=== PATIENT | female | born 1935 | race Caucasian/White ===

== ENCOUNTER → 2024-02-18 09:59 | Outpatient (REF) | payer OTHER, SELFPAY | LOC: RST 09:59 | PROVIDERS: ATTENDING PHYSICIAN Nurse Practitioner Gerontology | DX: F02.80 Dementia in other diseases classified elsewhere, unspecified severity, without behavioral disturbance, psychotic disturbance, mood disturbance, and anxiety (principal) | CPT/HCPCS: 74230; 92611 ==

== ENCOUNTER → 2024-07-16 10:39 | Outpatient (REF) | payer OTHER, SELFPAY | LOC: PET 10:39 | PROVIDERS: ATTENDING PHYSICIAN Internal Medicine Hospice and Palliative Medicine | DX: C50.412 Malignant neoplasm of upper-outer quadrant of left female breast (principal) | CPT/HCPCS: 78815; A9552 ==

== ENCOUNTER → 2024-07-30 13:07 | Outpatient (REF) | payer OTHER, SELFPAY | LOC: HWRAD 13:07 | PROVIDERS: ATTENDING PHYSICIAN Nurse Practitioner Gerontology; FAMILY PHYSICIAN Student in an Organized Health Care Education/Training Program | DX: G30.9 Alzheimer's disease, unspecified (principal) | CPT/HCPCS: 71046 ==